=== PATIENT | female | born 1975 | race Two or more races ===

== ENCOUNTER → 2022-04-02 | Outpatient (CLI) | payer BC ==
[2022-04-02 13:09] LABS: BASOPHILS % (AUTO) 0.4 % (0.0-2.0); BILIRUBIN,URINE NEGATIVE (NEGATIVE); COLOR,URINE YELLOW (YELLOW); EOSINOPHILS % (AUTO) 1.5 % (0.0-6.0); HEMATOCRIT 41 % (33-45); HEMOGLOBIN 13.7 g/dL (11.5-14.8); LEUKOCYTE ESTERASE ,URINE NEGATIVE (NEGATIVE); LYMPHOCYTES # (AUTO) 1.6 K/uL (0.8-4.8); LYMPHOCYTES % (AUTO) 22.7 % (20.0-44.0); MEAN CORPUSCULAR HGB CONC 34 g/dl (31.0-36.0); MEAN CORPUSCULAR VOLUME 86 fL (82-100); MONOCYTES # (AUTO) 0.4 K/uL (0.1-1.30); MONOCYTES % (AUTO) 5.2 % (2.0-12.0); NEUTROPHILS % (AUTO) 70.2 % (43.0-81.0); NITRITE, URINE NEGATIVE (NEGATIVE); PLATELET COUNT (AUTO) 264 K/uL (150-450); PROTEIN,URINE NEGATIVE (NEGATIVE); RED BLOOD CELL COUNT(AUTO) 4.79 MIL/uL (4.0-5.2); UGLUCOSE NEGATIVE (NEGATIVE); UROBILINOGEN,URINE 0.2 EU/dL (0.2); WHITE BLOOD COUNT (AUTO) 7.2 K/uL (4.3-11.0)
[2022-04-02 13:14] LABS: BACTERIA,URINE Few /HPF (None Seen); MUCUS,URINE Moderate /LPF (None Seen); RBC,URINE 0-2 /HPF (0-2); SQUAMOUS EPITHELIAL CELL,UR Few /HPF (None Seen)
[2022-04-02 13:34] LABS: THYROID STIMULATING HORMONE 2.347 uIU/mL (0.358-3.74); URIC ACID 4.3 mg/dL (2.6-7.2)
[2022-04-02 13:50] LABS: ALBUMIN 3.8 g/dL (3.4-5.0); BILIRUBIN,TOTAL 0.8 mg/dL (0.2-1.0); CALCIUM, SERUM 8.6 mg/dL (8.5-10.1); CREATININE 0.6 mg/dL (0.6-1.3); POTASSIUM 3.6 mmol/L (3.5-5.1); TOTAL PROTEIN, SERUM 7.1 g/dL (6.4-8.2)
[2022-04-03 08:06] LABS: FOLLICLE STIMULATION HORMONE 11.5 mIU/mL (.); LUTEINIZING HORMONE 5.3 mIU/mL (.); PROLACTIN 10.2 ng/mL (4.8-23.3)
== END | disposition home or self-care (01) ==
LOC: LAB 10:41
PROVIDERS: ATTEND Legal Medicine
DX: Z00.00 Encounter for general adult medical examination without abnormal findings (principal); E11.9 Type 2 diabetes mellitus without complications; E55.9 Vitamin D deficiency, unspecified; E78.00 Pure hypercholesterolemia, unspecified; E03.9 Hypothyroidism, unspecified; D64.9 Anemia, unspecified
CPT/HCPCS: 36415; 80053-TC; 80061-TC; 81001; 82306; 82607-TC; 82670; 82728-TC; 83001; 83002; 83540-TC; 84146; 84403; 84439-TC; 84443-TC; 84550-TC; 85025-TC; 87086-TC

== ENCOUNTER 2022-06-30 11:14 | Outpatient (CLI) | payer BC ==
[2022-07-01 08:06] LABS: FOLLICLE STIMULATION HORMONE 5.7 mIU/mL (.)
== END 2022-06-30 23:59 | disposition home or self-care (01) ==
LOC: LAB 11:14
PROVIDERS: ATTEND Obstetrics & Gynecology
DX: R89.1 Abnormal level of hormones in specimens from other organs, systems and tissues (principal)
CPT/HCPCS: 36415; 83001

== ENCOUNTER 2022-08-30 09:49 | Outpatient (CLI) | payer BC | END 2022-08-30 23:59 | disposition home or self-care (01) | LOC: LAB 09:49 | PROVIDERS: ATTEND Legal Medicine | DX: Z75.3 Unavailability and inaccessibility of health-care facilities (principal) ==

== ENCOUNTER → 2022-09-14 | Outpatient (CLI) | payer BC | END | disposition home or self-care (01) | LOC: CT 11:06 | PROVIDERS: ATTEND Legal Medicine | DX: D35.02 Benign neoplasm of left adrenal gland (principal); D17.71 Benign lipomatous neoplasm of kidney; R16.0 Hepatomegaly, not elsewhere classified; K44.9 Diaphragmatic hernia without obstruction or gangrene; R14.0 Abdominal distension (gaseous) ==

== ENCOUNTER 2022-09-28 10:11 | Outpatient (CLI) | payer BC | END 2022-09-28 23:59 | disposition home or self-care (01) | LOC: WOU 10:11 | PROVIDERS: ATTEND Podiatrist Foot & Ankle Surgery | DX: M19.172 Post-traumatic osteoarthritis, left ankle and foot (principal); R60.0 Localized edema; M25.572 Pain in left ankle and joints of left foot; Z96.89 Presence of other specified functional implants | CPT/HCPCS: 73600-TC; 73630-TC; G0463 ==

== ENCOUNTER 2022-10-19 11:55 | Outpatient (CLI) | payer BC ==
[~2022-10-19 11:55] MED LIST: DEXAMETHASONE SOD PHOSPHATE 4 MG/ML VIAL IV ONE; ETHYL CHLORIDE SPRAY 1 EA BOTTLE TP ONE; LIDOCAINE 2% 20 ML MDV ONE; TRIAMCINOLONE ACETONIDE SUSP 40 MG/ML VIAL IM ONE
== END 2022-10-19 12:59 | disposition home or self-care (01) ==
LOC: WOU 11:55
PROVIDERS: ATTEND Podiatrist Foot & Ankle Surgery
DX: M19.172 Post-traumatic osteoarthritis, left ankle and foot (principal); M25.572 Pain in left ankle and joints of left foot; R60.0 Localized edema
CPT/HCPCS: 20605; J1100; J3490; J3301